=== PATIENT | female | born 1980 | race Caucasian/White ===

== ENCOUNTER 2016-04-15 11:36 | Emergency (ER) | payer OTHER ==
[~2016-04-15] VITALS: Wt 89.0 kg
[~2016-04-15 11:36] MED LIST: INSU100V14; INSULIN NPH; PREN1TAB49
[2016-04-15 13:42] LABS: URINE BLOOD (Dip) POC 2+ (NEGATIVE)
[2016-04-15] MEDS ORDERED: INSULIN LISPRO 100 UNIT/ML VIAL SC STA (13:46)
[2016-04-15] MEDS ORDERED: SOD CHLORIDE 0.9% 1,000 ML IV STA (13:46)
[2016-04-15] MEDS ORDERED: INSULIN REGULAR, HUMAN 100 UNIT/1 ML 3ML VIAL SC ONE (14:00)
[2016-04-15 14:05] LABS: ADD UMIC YES; URINE BILIRUBIN (Dip) NEGATIVE (NEGATIVE); URINE BLOOD (Dip) 2+ (NEGATIVE); URINE COLOR LT. YELLOW (YELLOW); URINE GLUCOSE (Dip) >=1000 % (NEGATIVE); URINE KETONES (Dip) NEGATIVE (NEGATIVE); URINE LEUKOCYTE ESTERASE (Dip) NEGATIVE (NEGATIVE); URINE NITRITE (Dip) NEGATIVE (NEGATIVE); URINE TOTAL PROTEIN (Dip) NEGATIVE (NEGATIVE); URINE UROBILINOGEN (Dip) 0.2 E.U./dL (0.1-1.0)
[2016-04-15 14:20] LABS: ADD SCAN DIFF NO
[2016-04-15 14:22] LABS: BASOPHILS % 0.4 % (0.0-2.0); EOSINOPHILS # 0.2 10^3/ul (0.0-0.5); EOSINOPHILS % 1.8 % (0.0-7.0); HEMATOCRIT 39.7 % (37.0-47.0); HEMOGLOBIN 12.8 g/dl (12.0-16.0); LYMPHOCYTES # 2.1 10^3/ul (0.8-2.9); LYMPHOCYTES % 22.6 % (15.0-51.0); MEAN CORPUSCULAR HGB CONC 32.2 g/dl (32.0-37.0); MEAN CORPUSCULAR VOLUME 77.7 fl (82.0-101.0); MEAN PLATELET VOLUME 10.6 fl (7.4-10.4); MONOCYTE # 0.3 10^3/ul (0.3-0.9); MONOCYTES % 3.6 % (0.0-11.0); NEUTROPHIL # 6.5 10^3/ul (1.6-7.5); NEUTROPHILS % 71.3 % (39.0-77.0); PLATELET COUNT 333 10^3/UL (140-415); RED BLOOD COUNT 5.11 10^6/ul (4.20-5.40); RED CELL DISTRIBUTION WIDTH 13.4 % (11.5-14.5); WHITE BLOOD COUNT 9.1 10^3/ul (4.8-10.8)
[2016-04-15 14:23] LABS: BACTERIA,URINE FEW; SQUAMOUS EPITHELIAL CELL,UR FEW; URINE RBCS 0-2 /HPF (0)
[2016-04-15 14:39] LABS: ALBUMIN 3.9 g/dl (3.3-4.9)
[2016-04-15 14:40] LABS: POTASSIUM 4.6 mmol/L (3.5-5.1)
[2016-04-15 14:41] LABS: CREATININE 0.45 mg/dl (0.44-1.00)
[2016-04-15 14:42] LABS: ALBUMIN/GLOBULIN RATIO 1.44; BILIRUBIN,INDIRECT 0.3 mg/dl (0-1.1); BILIRUBIN,TOTAL 0.3 mg/dl (0.2-1.3); TOTAL PROTEIN 6.6 g/dl (6.1-8.1)
[2016-04-15 14:43] LABS: CALCIUM 9.5 mg/dl (8.4-10.2)
[2016-04-15] MEDS ORDERED: MTF1000T PO (15:03)
[2016-04-15] MEDS ORDERED: CLOT30CR24 TOP (15:03)
[2016-04-15] MEDS ORDERED: FLUC150T17 PO (15:03)
--- NOTE | 2016-04-15 15:10 | ERD ---
ER Documentation Chief Complaint Date/Time DATE: 04/15/16 TIME: 15:08 Chief Complaint DYSURIA AND VAGINAL DISCOMFORT FOR 2 MOS. NO N/V HPI This 35-year-old male complains of a vaginal rash and only for last 2 months. She was treated Diflucan at a clinic 2 months ago. It was resolved for 2 weeks but returns. She was also told she had glucose in her urine and should have her blood sugar checked apparently. She is unable to get primary care doctor treatment due to insurance issues she states that no real see her. She denies fevers, chest pain, shortness breath. She denies any dysuria or flank pain. ROS All systems reviewed and are negative except as per history of present illness. Medications Home Meds Active Scripts Fluconazole* (Diflucan*) 150 Mg Tablet, 150 MG PO Q WEEK, #2 TAB Take 1 and repeat after 1 week. Prov:DRAKE ZENDEJAS MD 04/15/16 Clotrimazole* (Clotrimazole* AF) 1% - 30 Gm Cream.gm., 1 APPLIC TOP BID for 10 Days, TUB Prov:DRAKE ZENDEJAS MD 04/15/16 Metformin* (Glucophage*) 1,000 Mg Tablet, 1000 MG PO DAILY, #30 TAB Prov:DRAKE ZENDEJAS MD 04/15/16 Reported Medications [Insulin Nph] No Conflict Check 04/27/10 Insulin Regular, Human (Humulin R) 100 Units/Ml Vial 04/27/10 [Insulin Nph] No Conflict Check 04/27/10 Insulin Regular, Human (Humulin R) 100 Units/Ml Vial 04/27/10 Vits W-Ca,Fe,Fa(<1MG) () 1 Tab Tablet 04/27/10 Allergies Allergies: Coded Allergies: No Known Drug Allergy (Verified Allergy, Unknown, 04/23/10) PMhx/Soc Medical and Surgical Hx: pt denies Surgical Hx History of Surgery: No Anesthesia Reaction: No Hx Neurological Disorder: No Hx Respiratory Disorders: No Hx Cardiac Disorders: No Hx Psychiatric Problems: No Hx Miscellaneous Medical Probl: Yes (Gestional diabetes ) Hx Alcohol Use: No Hx Substance Use: No Hx Tobacco Use: No Physical Exam Vitals Vital Signs Date Time Temp Pulse Resp B/P Pulse Ox O2 Delivery O2 Flow Rate FiO2 04/15/16 11:40 98.8 91 20 122/75 99 Physical Exam Const: [] Alert, [id number] per Head: Atraumatic Eyes: Normal Conjunctiva ENT: Normal External Ears, Nose and Mouth. Neck: Full range of motion..~ No meningismus. Resp: Clear to auscultation bilaterally Cardio: Regular rate and rhythm, no murmurs Abd: Soft, non tender, non distended. Normal bowel sounds Skin: No petechiae or rashes. There is diffuse erythematous rash with satellite lesions on the external vaginal area. There is no warmth, induration or streaking. Back: No midline or flank tenderness Ext: No cyanosis, or edema Neur: Awake and alert Psych: Normal Mood and Affect Result Diagram: 04/15/16 1355 04/15/16 1355 Results 24 hrs Laboratory Tests Test 04/15/16 13:00 04/15/16 13:45 04/15/16 13:55 04/15/16 15:01 Urine Bacteria FEW Urine Bilirubin NEGATIVE Urine Clarity CLEAR Urine Color LT. YELLOW Urine Glucose >=1000% Urine Hemoglobin 2+ Urine Ketones NEGATIVE Urine Leukocyte Esterase NEGATIVE Urine Microscopic RBC 0-2/HPF Urine Microscopic WBC 2-5/HPF Urine Nitrite NEGATIVE Urine Specific [place] 1.015 Urine Squamous Epithelial Cells FEW Urine Total Protein NEGATIVE Urine Urobilinogen 0.2 E.U./dL Urine pH 5.5 Bedside Glucose 302mg/dL 236mg/dL Bedside Urine Blood 2+ Bedside Urine Glucose (UA) 0.50% Bedside Urine Ketones (LAB) Negative Bedside Urine Leukocyte Esterase (L Negative Bedside Urine Nitrite (LAB) Negative Bedside Urine Protein (LAB) Negative Bedside Urine pH (LAB) 5.0 Alanine Aminotransferase (ALT/SGPT) 31IU/L Albumin 3.9g/dl Albumin/Globulin Ratio 1.44 Alkaline Phosphatase 81IU/L Anion Gap 17 Aspartate Amino Transf (AST/SGOT) 14IU/L Basophils # 0.010^3/ul Basophils % 0.4% Blood Urea Nitrogen 11mg/dl Calcium Level 9.5mg/dl Carbon Dioxide Level 26mmol/L Chloride Level 99mmol/L Creatinine 0.45mg/dl Direct Bilirubin 0.00mg/dl Eosinophils # 0.210^3/ul Eosinophils % 1.8% Globulin 2.70g/dl Glucose Level 353mg/dl Hematocrit 39.7% Hemoglobin 12.8g/dl Indirect Bilirubin 0.3mg/dl Lipase 114U/L Lymphocytes # 2.110^3/ul Lymphocytes % 22.6% Mean Corpuscular Hemoglobin 25.0pg Mean Corpuscular Hemoglobin Concent 32.2g/dl Mean Corpuscular Volume 77.7fl Mean Platelet Volume 10.6fl Monocytes # 0.310^3/ul Monocytes % 3.6% Neutrophils # 6.510^3/ul Neutrophils % 71.3% Nucleated Red Blood Cells # 0.010^3/ul Nucleated Red Blood Cells % 0.0/100WBC Platelet Count 08630^3/UL Potassium Level 4.6mmol/L Red Blood Count 5.1110^6/ul Red Cell Distribution Width 13.4% Sodium Level 137mmol/L Total Bilirubin 0.3mg/dl Total Protein 6.6g/dl White Blood Count 9.110^3/ul Current Medications Medications (Trade) Dose Ordered Sig/[place] Route PRN Reason Start Time Stop Time Status Last Admin Dose Admin Sodium Chloride (NS) 1,000 ml @ 1,000 mls/hr Q1H STAT IV 04/15/16 13:46 04/15/16 14:45 DC 04/15/16 13:59 Insulin Human Lispro (Humalog) 4 unit ONCE STAT SC 04/15/16 13:46 04/15/16 13:54 DC Insulin Human Regular (Humulin R) 4 unit ONCE ONCE SC 04/15/16 14:00 04/15/16 14:01 DC 04/15/16 14:00 Procedures/MDM Urine shows glucose and hemoglobin without leukocytes or nitrites. Accu-Chek was 304. Given new onset diabetes without previous treatment I views obtained. Patient was given 1 L normal saline IV, CBC showed no acute abnormalities and CMP shows no acute abnormalities except for hyperglycemia. Patient was given 4 units subcutaneous Novolin was amatory [id number] throughout the ED course. Patient presents with new onset diabetes, signs of monilia vaginitis. She will be referred to local [facility] for further evaluation and treatment. She will treated with Diflucan and Glucophage in the meantime. Patient was advised to return for fevers, vomiting, shortness of breath or new worsening symptoms with primary care doctor this week. The patient was stable with no new complaints during the ER course. Clinically, there is no current evidence to suggest meningitis, sepsis, acute abdomen, pneumonia, acute coronary syndrome, pulmonary embolism, or any other emergent condition appearing to require further evaluation or hospitalization. The patient should certainly return for any new or worsening symptoms per the aftercare instructions. They should otherwise follow-up with her primary care doctor for reevaluation this week. Departure Diagnosis: Primary Impression: Diabetes Diabetes mellitus type: type 2 Diabetes mellitus complication status: with unspecified complications Diabetes mellitus intermediate frame tender insulin use: without intermediate frame tender use Qualified Code: E11.8 - Type 2 diabetes mellitus with complication, without long-term current use of insulin Additional Impression: Monilial vaginitis Condition: Stable Patient Instructions: Understanding Type 2 Diabetes [facility] Usted se ivan hecho un examen mdico de control que le indica que no est en reed condicin que requiera tratamiento urgente en el Departamento de Emergencia. Un estudio ms profundo y el tratamiento de hallman condicin pueden esperar sin ningn riesgo hasta que usted sea atendida/o en el consultorio de hallman mdico o reed cl cristiane. Es responsabilidad suya arreglar reed leeann para el seguimiento del lubna. MANEJO DE CONDICIONES NO URGENTES EN EL FUTURO 1) Si usted tiene un mdico de atencin primaria: Usted debera llamar a hallman mdico de atencin primaria antes de venir al departamento de emergencia. Despus de las horas de consultorio, hallman doctor o hallman asociado/a est disponible por telfono. El mdico o enfermero de eden en el servicio telefnico puede asesorarle por lucy medio para atender el problema, o lubna contrario se puede programar reed leeann. 2) Si usted no tiene un mdico de atencin primaria: Llame al mdico o clnica de referencia que aparece abajo martha las horas de consultorio para hacer reed leeann para que le vean. CLINICAS: [facility] [id number] [facility] [phone] [facility] [[email or web address]] [id number] [facility] [phone] [facility] [phone] [id number] [facility] [phone] [address] Additional Instructions: Labs show diabetes today and we will start treatment. Rash appears to be fungal infection. See primary care for follow-up and further treatment. Recheck for fevers, vomiting, new or worsening symptoms. DRAKE ZENDEJAS MD Apr 15, 2016 15:10
[2016-04-15 15:18] VITALS: BP 119/80; PULSE 85; RESP 16; TEMP 98.2
== END 2016-04-15 15:19 | disposition home or self-care (01) ==
LOC: FTE 11:36
DX: E11.8 Type 2 diabetes mellitus with unspecified complications (principal); B37.3 Candidiasis of vulva and vagina; Z79.84 Long term (current) use of oral hypoglycemic drugs; Z79.4 Long term (current) use of insulin
CPT/HCPCS: 80053; 81001; 82962; 83690; 85025; 96372; J1815; J7030; Z7502; 81003